=== PATIENT | male | born 1995 | race Caucasian/White ===

== ENCOUNTER 2024-08-22 20:48 | Emergency (ER) | payer OTHER ==
[~2024-08-22] VITALS: Ht 177.8 cm; Wt 92.4 kg
[2024-08-22 20:57] VITALS: BP 156/80; TEMP 97.9; O2SAT 97
[2024-08-22] MEDS ORDERED: PRED20TA PO (23:02)
[2024-08-22] MEDS ORDERED: CIPR-249 PO (23:02)
[2024-08-22] MEDS: IBUPROFEN 600MG TAB PO ONE (23:17)
[2024-08-22] MEDS: CIPROFLOXACIN 500MG TABLET PO ONE (23:17)
[2024-08-22] MEDS: CIPRODEX OTIC SUSP 7.5ML AD SCH (23:17)
== END 2024-08-22 23:20 | disposition home or self-care (01) ==
LOC: M ED 20:48
DX: H60.311 Diffuse otitis externa, right ear (principal); H66.001 Acute suppurative otitis media without spontaneous rupture of ear drum, right ear